=== PATIENT | female | born 1990 | race American Indian/Alaskan Native ===

== ENCOUNTER 2020-05-12 17:19 | Emergency (ER) | payer OTHER ==
--- NOTE | 2020-05-12 20:17 | XRay Report ---
Right foot-2 views INDICATION: trauma, pain. COMPARISON: None. IMPRESSION: No acute osseous or soft tissue abnormality. No significant DJD. Signer Name: Paul Younger MD Signed: 05/12/2020 8:12 PM Workstation Name: [id number]
[2020-05-12] MEDS ORDERED: CYCLOBENZAPRINE 10 MG TAB PO ONE (22:14)
[2020-05-12] MEDS ORDERED: IBUPROFEN 600 MG TAB PO ONE (22:14)
[2020-05-12 22:50] LABS: Bilirubin,Urine NEG (Negative); Blood,Urine MOD (Negative); Color,Urine Yellow (Yellow); Mucus,Urine FEW /HPF; Protein,Urine <15 mg/dL mg/dL (Negative); Urobilinogen,Urine < 2.0 mg/dL (<2.0)
[2020-05-12 22:57] LABS: HCG Qualitative,Urine Negative (Negative)
--- NOTE | 2020-05-12 23:01 | Emergency Department Report ---
ED Lower Extremity HPI - General Chief Complaint: Extremity Injury, Lower Stated Complaint: RT LEG/RT FOOT PAIN Source: patient Mode of arrival: Ambulatory Limitations: No Limitations - History of Present Illness Initial Comments: Patient is a 30-year-old -[place] female with no past medical history presents to the ED with complaint of acute onset persistent severe dorsal right foot pain after a metallic rail slipped and fell onto her right foot at work about 8 hours ago. Patient states that the pain is worse with ambulation. Patient also complains of lateral right posterior midthoracic and flank pain worse with any movement or palpation. Patient denies shortness of breath, traumatic injury, dizziness, syncope, chest pain, change in vision, fall, hematuria, dysuria, abdominal pain, neck pain, headache or numbness and tingling or weakness of lower and upper extremities bilaterally. MD Complaint: foot injury (metallic rail fell on right foot), other (right flank pain) -: Sudden, hour(s) (8) Injury: Foot: Right (Right foot pain) Type of Injury: blunt Place: work Severity: moderate Severity scale (0 -10): 5 Improves With: nothing Worsens With: weight bearing, movement, palpation Context: direct blow, other (heavy metallic rail fell onto right foot) Associated Symptoms: able to partially bear weight. denies: snap/pop sensation, swelling, numbness, tingling, unable to bear weight, ambulatory, other - Related Data Previous Rx's Medication Instructions Recorded Last Taken Type Cyclobenzaprine HCl [Flexeril 5 MG 5 mg PO TID PRN #15 tab 05/12/20 Unknown Rx TAB] Ibuprofen [Motrin] 400 mg PO Q8H PRN #24 tablet 05/12/20 Unknown Rx Allergies Allergy/AdvReac Type Severity Reaction Status Date / Time No Known Allergies Allergy Unverified 05/12/20 18:55 ED Review of Systems ROS: Stated complaint: RT LEG/RT FOOT PAIN Other details as noted in HPI Constitutional: denies: chills, fever Eyes: denies: eye pain, eye discharge, vision change ENT: denies: ear pain, throat pain Respiratory: denies: cough, shortness of breath, wheezing Cardiovascular: denies: chest pain, palpitations Endocrine: no symptoms reported Gastrointestinal: other (right flank pain). denies: abdominal pain, nausea, vomiting, diarrhea Genitourinary: denies: urgency, dysuria, discharge Musculoskeletal: back pain (Right-sided lateral mid-posterior thoracic pain), arthralgia (right foot pain). denies: joint swelling Skin: denies: rash, lesions Neurological: denies: headache, weakness, paresthesias Psychiatric: denies: anxiety, depression Hematological/Lymphatic: denies: easy bleeding, easy bruising ED Past Medical Hx - Past Medical History Previous Medical History?: No - Surgical History Past Surgical History?: No - Medications Home Medications: Home Medications Medication Instructions Recorded Confirmed Last Taken Type Cyclobenzaprine HCl [Flexeril 5 MG 5 mg PO TID PRN #15 tab 05/12/20 Unknown Rx TAB] Ibuprofen [Motrin] 400 mg PO Q8H PRN #24 tablet 05/12/20 Unknown Rx ED Physical Exam - General Limitations: No Limitations General appearance: alert, in no apparent distress - Head Head exam: Present: atraumatic, normocephalic, normal inspection - Eye Eye exam: Present: normal appearance, PERRL, EOMI Pupils: Present: normal accommodation - ENT ENT exam: Present: normal exam, normal orophraynx, mucous membranes moist, TM's normal bilaterally, normal external ear exam - Neck Neck exam: Present: normal inspection, full ROM - Respiratory Respiratory exam: Present: normal lung sounds bilaterally. Absent: respiratory distress, wheezes, rales, rhonchi, chest wall tenderness, accessory muscle use, decreased breath sounds - Cardiovascular Cardiovascular Exam: Present: regular rate, normal rhythm, normal heart sounds. Absent: systolic murmur, diastolic murmur, rubs, gallop - GI/Abdominal GI/Abdominal exam: Present: soft, normal bowel sounds. Absent: tenderness, gua rding, rebound, hyperactive bowel sounds, hypoactive bowel sounds, organomegaly - Extremities Exam Extremities exam: Present: normal inspection, full ROM, tenderness (Palpable mild dorsal right foot tenderness), normal capillary refill. Absent: pedal edema, joint swelling, calf tenderness - Back Exam Back exam: Present: normal inspection, full ROM, tenderness (Palpable mid lateral posterior thoracic paraspinal musculoskeletal tenderness), muscle spasm, paraspinal tenderness - Neurological Exam Neurological exam: Present: alert, oriented X3, CN II-XII intact, normal gait, reflexes normal - Psychiatric Psychiatric exam: Present: normal affect, normal mood - Skin Skin exam: Present: warm, dry, intact, normal color. Absent: rash ED Course Vital Signs 05/12/20 18:56 Temperature 98.5 F Pulse Rate 85 Respiratory 18 Rate Blood Pressure 106/39 O2 Sat by Pulse 99 Oximetry ED Lower Extremity MDM - Radiology Data Radiology results: report reviewed, image reviewed Findings [facility] [address] [place] [address] XRay Report Signed Patient: BRENDA GOMEZ MR#: [id number] : 1990 Acct:[id number] Age/Sex: 30 / F ADM Date: 05/12/20 Loc: ED Attending Dr: Ordering Physician: ED MD KAROL Date of Service: 05/12/20 Procedure(s): XR foot 2V RT Accession Number(s): [id number] cc: ED MD KAROL Fluoro Time In Minutes: Right foot-2 views INDICATION: trauma, pain. COMPARISON: None. IMPRESSION: No acute osseous or soft tissue abnormality. No significant DJD. Signer Name: Paul Younger MD Signed: 05/12/2020 8:12 PM Workstation Name: [id number] Transcribed By: JW Dictated By: Paul Younger MD Electronically Authenticated By: Paul Younger MD Signed Date/Time: 05/12/202011 DD/ 10 TD/TT: - Medical Decision Making This is a 30-year-old -[place] female with no past medical history presents to the ED with complaint of acute onset persistent severe dorsal right foot pain after a metallic rail slipped and fell onto her right foot at work about 8 hours ago. Patient states that the pain is worse with ambulation. Patient also complains of lateral right posterior midthoracic and flank pain wo rse with any movement or palpation. In the ED, patient is alert and oriented x3 and is not in distress. Patient was treated for pain in the ED and also given muscle relaxants. Urinalysis unremarkable and right foot x-ray shows no acute fractures or subluxations. On reevaluation, patient's pain is well controlled with medication. Patient will discharge home on pain medication and was advised to return to the ED immediately if symptoms get worse, otherwise follow-up with her primary care physician in 5 to 7 days for reevaluation. - Differential Diagnosis Foot fracture; foot contusion; foot sprain; muscle spasm; back pain; UTI Critical care attestation.: If time is entered above; I have spent that time in minutes in the direct care of this critically ill patient, excluding procedure time. ED Disposition Clinical Impression: Spasm of thoracic back muscle Sprain of right foot Qualifiers: Encounter type: initial encounter Qualified Code(s): S93.601A - Unspecified sprain of right foot, initial encounter Contusion of right foot including toes Qualifiers: Encounter type: initial encounter Qualified Code(s): S90.31XA - Contusion of right foot, initial encounter; S90.121A - Contusion of right lesser toe(s) without damage to nail, initial encounter Disposition: TO HOME OR SELFCARE Is pt being admited?: No Does the pt Need Aspirin: No Condition: Stable Instructions: Muscle Spasm (ED), Foot Sprain (ED) Additional Instructions: The x-rays of your right foot showed no acute fractures or subluxations. Urinalysis was unremarkable. Therefore take medications with food, drink plenty of fluids and follow-up with your primary care physician in 5 to 7 days for reevaluation or return to the ED immediately if symptoms get worse. Prescriptions: Cyclobenzaprine HCl [Flexeril 5 MG TAB] 5 mg PO TID PRN #15 tab PRN Reason: Muscle Spasm Ibuprofen [Motrin] 400 mg PO Q8H PRN #24 tablet PRN Reason: Pain , Severe (7-10) Referrals: [facility] [Provider Group] - 3-5 Days Time of Disposition: 23:05 Print Language: ANDORRAN
[2020-05-12 23:26] VITALS: BP 110/78
== END 2020-05-12 23:25 | disposition home or self-care (01) ==
LOC: ED 17:19
DX: S93.601A Unspecified sprain of right foot, initial encounter (principal); M62.830 Muscle spasm of back; Z79.899 Other long term (current) drug therapy; W01.0XXA Fall on same level from slipping, tripping and stumbling without subsequent striking against object, initial encounter; Y93.89 Activity, other specified; Y92.89 Other specified places as the place of occurrence of the external cause; Y99.0 Civilian activity done for income or pay
CPT/HCPCS: 81001; 81025